=== PATIENT | male | born 1985 | race Caucasian/White ===

== ENCOUNTER 2024-02-24 14:10 | Outpatient (CLI) | payer BC, SELFPAY ==
--- NOTE | ~2024-02-24 | MR_ITS ---
EXAMINATION: MR pituitary wo/w con DATE: 02/24/2024 16:02 INDICATION: Adrenal insufficiency TECHNIQUE: Magnetic resonance imaging (MRI) of the brain and brainstem was performed without and with 14 mL Multihance intravenous contrast. Whole-brain sequences included sagittal T1-weighted FSE, axia l diffusion-weighted FS EPI, axial T2*-weighted GRE, axial T2-weighted FLAIR Propeller, and axial T2- weighted Propeller. Small [id number] sequences included sagittal and coronal T1-weighted FSE cente red at the pituitary. Postcontrast sequences included small [id number] coronal T1-weighted FSE in a time course and sagittal T1-weighted FSE and whole-brain axial T1-weighted FSE. Apparent diffusion coefficient (ADC) maps were created. COMPARISON: None FINDINGS: There are no areas of restricted diffusion to suggest acute infarction. No intracranial hemorrhage. T here is a large heterogeneously enhancing solid mass centered within and expanding the sella. The mas s measures 3.2 cm left to right, 2.6 cm craniocaudally 2.9 cm anteroposteriorly. No evident internal flow voids to suggest aneurysm. There appears be an intact curvilinear low signal intensity cortical margin to the expanded sella which favors a likely benign slowly growing neoplasm over a more aggress kelli malignancy. There is mild suprasellar extension with the mass abutting but not exerting significa nt mass effect upon the more cephalad optic chiasm. The mass extends laterally into the bilateral cav ernous sinuses, more prominent on the left where it increases the craniocaudal separation between the cavernous and ophthalmic segments of the left internal carotid artery with no evident compression of the vessels. While the posterior wall of the sphenoid sinus is remodeling and bowed anteriorly, it a ppears intact. [place] the constellation of findings would be most consistent with a pituitary macroade noma. There are no intraparenchymal signal abnormalities seen on the other pulse sequences. The ventr icles are symmetric and normal in size. There are no abnormal extra-axial fluid collections. Flow voi ds are seen in the cerebral arteries on the T2-weighted sequences consistent with their expected vasquez ncy. Visualized orbits and soft tissues are unremarkable. IMPRESSION: 1. 3.2 x 2.9 x 2.6 cm heterogeneously enhancing intrasellar mass which appears to expand unremarkable as opposed to erode the sella. 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 Would correlate with CT to confirm intact cortices as differential for a more aggressive appearing neoplasm in this location wo uld include chordoma or metastatic disease in the appropriate clinical setting. Reviewed, dictated and finalized at location A. IMPRESSION: 1. 3.2 x 2.9 x 2.6 cm heterogeneously enhancing intrasellar mass which appears to expand unremarkable as opposed to erode the sella. Appearance most consisten t with a pituitary macroadenoma with differential including significantly less likely craniopharyngioma or meningioma. Would correlate with CT to confirm inta ct cortices as differential for a more aggressive appearing neoplasm in this lo cation would include chordoma or metastatic disease in the appropriate clinical setting.
== END 2024-02-24 14:11 | disposition home or self-care (01) ==
LOC: ANHIMG 14:14
DX: E27.40 Unspecified adrenocortical insufficiency (principal)
CPT/HCPCS: 70553; A9577